=== PATIENT | male | born 1980 | race Hispanic/Latino ===

== ENCOUNTER 2019-01-27 18:47 | Emergency (ER) | payer SELFPAY ==
[2019-01-27 18:50] VITALS: RESP 16; TEMP 98.7
[2019-01-27 18:51] VITALS: BMI 34.8
--- NOTE | 2019-01-27 20:35 | ED PDOC ---
Syncope/Near Syncope/Dizziness Time Seen by Provider: 01/27/19 19:29 Chief Complaint (Nursing): Dizziness/Lightheaded Chief Complaint (Provider): Dizziness/Lightheaded History Per: Patient History/Exam Limitations: no limitations Onset/Duration Of Symptoms: Mins Current Symptoms Are (Timing): Still Present Additional Complaint(s): 38 y/o male with no significant PMHx presents to the ED for evaluation of a syncopal episode, onset just prior to arrival. Patient reports that while at work reading a distressing email he began feeling lightheaded and dizzy and then passed out for a couple of seconds. Patient states that he has been very stressed at work recently because of tax season. Patient notes that he has been sleeping little and is not taking care of himself. Otherwise, patient denies chest pain or shortness of breath prior to or after the incident. Patient reports of feeling better right now and just feels tired. PMD: no provider Past Medical History Reviewed: Historical Data, Nursing Documentation, Vital Signs Vital Signs: Last Vital Signs Temp 98.7 F 01/27/19 18:50 Pulse 87 01/27/19 18:50 Resp 16 01/27/19 18:50 BP 141/88 01/27/19 18:50 Pulse Ox 98 01/27/19 18:50 - Medical History PMH: No Chronic Diseases - Surgical History Surgical History: No Surg Hx - Family History Family History: States: No Known Family Hx - Living Arrangements Living Arrangements: With Family - Allergies Allergies/Adverse Reactions: Allergies Allergy/AdvReac Type Severity Reaction Status Date / Time No Known Allergies Allergy Verified 01/27/19 18:58 Review of Systems ROS Statement: Except As Marked, All Systems Reviewed And Found Negative Cardiovascular: Negative for: Chest Pain Respiratory: Negative for: Shortness of Breath Neurological: Positive for: Dizziness (and lightheaded), Other (syncope) Physical Exam - Reviewed Nursing Documentation Reviewed: Yes Vital Signs Reviewed: Yes - Physical Exam Appears: Positive for: No Acute Distress (but overweight) Head Exam: Positive for: ATRAUMATIC, NORMOCEPHALIC Skin: Positive for: Normal Color, Warm, Dry Eye Exam: Positive for: Normal appearance, EOMI, PERRL Neck: Positive for: Normal, Painless ROM, Supple Cardiovascular/Chest: Positive for: Regular Rate, Rhythm. Negative for: Murmur Respiratory: Positive for: Normal Breath Sounds. Negative for: Respiratory Distress Gastrointestinal/Abdominal: Positive for: Normal Exam, Soft. Negative for: Tenderness Back: Positive for: Normal Inspection. Negative for: L CVA Tenderness, R CVA Tenderness, Vertebral Tenderness Extremity: Positive for: Normal ROM. Negative for: Deformity Neurological/Psych: Positive for: Awake, Alert, Oriented (x3). Negative for: Motor/Sensory Deficits - ECG ECG: Positive for: Interpreted By Me, Viewed By Me ECG Rhythm: Positive for: Sinus Rhythm. Negative for: ST/T Changes Interpretation Of Abn EKG: No T-Wave inversions. Rate: 75 O2 Sat by Pulse Oximetry: 98 (RA) Pulse Ox Interpretation: Normal Medical Decision Making Medical Decision Making: Time: 2005 A/P: 38 y/o male presenting with syncope, insetting of fatigue and stress -- Likely Vasovagal response -- Patient recovered. Will check EKG and accucheck -- Will recommend outpatient follow up -- EKG -- Glucose, POC -- Glucose, Blood, POC Time: 2045 -- On re-evaluation, patient reports of feeling better at this time. Patient is stable for discharge home with instructions to follow up as an outpatient. REcommended lifestyle modification, stress reduction, healthier eating habits. Scribe Attestation: Documented by Abbi Anne, acting as a scribe Carly Florence MD. Provider Scribe Attestation: All medical record entries made by the Scribe were at my direction and personally dictated by me. I have reviewed the chart and agree that the record accurately reflects my personal performance of the history, physical exam, medical decision making, and the department course for this patient. I have also personally directed, reviewed, and agree with the discharge instructions and disposition. Disposition - Clinical Impression Clinical Impression: Syncope Counseled Patient/Family Regarding: Studies Performed, Diagnosis, Need For Followup - Disposition Referrals: [facility] [Outside] Disposition: Routine/Home Disposition Time: 20:46 Condition: IMPROVED Instructions: Syncope (Fainting) Forms: [facility] (Chinese)
[2019-01-27 20:48] VITALS: PULSE 75
[2019-01-27 20:55] VITALS: BP 126/72
[2019-01-27 21:25] VITALS: O2SAT 98
--- NOTE | 2019-01-28 21:22 | CARD ---
APPROVED REPORT Date of service: 01/27/2019 EKG Measurement Heart [id number] <Conclusion> Normal sinus rhythm Normal ECG
== END 2019-01-27 21:05 | disposition home or self-care (01) ==
LOC: H.ER 18:47
DX: R55 Syncope and collapse (principal)